=== PATIENT | female | born 1990 | race Caucasian/White ===

== ENCOUNTER 2016-12-03 16:58 | Emergency (ER) | payer SELFPAY ==
[~2016-12-03] VITALS: Wt 70.0 kg
[2016-12-03] MEDS ORDERED: ONDANSETRON 4 MG INJ IV STA ×2 (17:33→18:11)
[2016-12-03] MEDS ORDERED: morphine 2 MG INJ IV STA (17:33)
[2016-12-03] MEDS ORDERED: SOD CHLORIDE 0.9% 1,000 ML IV STA (17:33)
[2016-12-03 18:00] LABS: ADD SCAN DIFF NO
[2016-12-03 18:05] LABS: BASOPHILS % 0.1 % (0.0-2.0); EOSINOPHILS # 0.1 10^3/ul (0.0-0.5); EOSINOPHILS % 0.9 % (0.0-7.0); HEMOGLOBIN 15.8 g/dl (12.0-16.0); LYMPHOCYTES # 0.9 10^3/ul (0.8-2.9); LYMPHOCYTES % 6.4 % (15.0-51.0); MEAN CORPUSCULAR HEMOGLOBIN 30.4 pg (29.0-33.0); MEAN CORPUSCULAR HGB CONC 34.3 g/dl (32.0-37.0); MEAN CORPUSCULAR VOLUME 88.6 fl (82.0-101.0); MEAN PLATELET VOLUME 9.3 fl (7.4-10.4); MONOCYTE # 0.6 10^3/ul (0.3-0.9); MONOCYTES % 4.5 % (0.0-11.0); NEUTROPHILS % 87.7 % (39.0-77.0); PLATELET COUNT 285 10^3/UL (140-415); RED BLOOD COUNT 5.19 10^6/ul (4.20-5.40); RED CELL DISTRIBUTION WIDTH 12.7 % (11.5-14.5); WHITE BLOOD COUNT 13.6 10^3/ul (4.8-10.8)
[2016-12-03] MEDS ORDERED: NICOTINE (21 MG/24 HR) PATCH TRANSDERM STA (18:11)
[2016-12-03] MEDS ORDERED: morphine 4 MG/ML VIAL IV STA (18:11)
[2016-12-03 18:20] LABS: ALBUMIN 4.7 g/dl (3.3-4.9); POTASSIUM 3.7 mmol/L (3.5-5.1)
[2016-12-03 18:22] LABS: BILIRUBIN,INDIRECT 0.5 mg/dl (0-1.1); BILIRUBIN,TOTAL 0.5 mg/dl (0.2-1.3); CREATININE 0.61 mg/dl (0.44-1.00)
[2016-12-03 18:23] LABS: ALBUMIN/GLOBULIN RATIO 1.46; CALCIUM 9.1 mg/dl (8.4-10.2); TOTAL PROTEIN 7.9 g/dl (6.1-8.1)
[2016-12-03] MEDS ORDERED: METOCLOPRAMIDE 10 MG INJ IV ONE (18:30)
[2016-12-03 19:57] LABS: ADD UMIC YES; URINE BILIRUBIN (Dip) NEGATIVE (NEGATIVE); URINE BLOOD (Dip) NEGATIVE (NEGATIVE); URINE COLOR YELLOW (YELLOW); URINE GLUCOSE (Dip) NEGATIVE (NEGATIVE); URINE KETONES (Dip) NEGATIVE (NEGATIVE); URINE LEUKOCYTE ESTERASE (Dip) TRACE (NEGATIVE); URINE NITRITE (Dip) NEGATIVE (NEGATIVE); URINE TOTAL PROTEIN (Dip) 1+ (NEGATIVE); URINE UROBILINOGEN (Dip) 1.0 E.U./dL (0.1-1.0)
--- NOTE | 2016-12-03 19:59 | RADRPT ---
PROCEDURE: US Abdomen Limited. CLINICAL INDICATION: Pain TECHNIQUE: Multiple real-time longitudinal and transverse images were acquired of the patient's [facility] abdomen and retroperitoneum utilizing a curved array transducer. COMPARISON: None FINDINGS: Pancreas: The pancreas is suboptimally visualized in the tail. There is no significant abnormality in the visualized portion. The main pancreatic duct is not dilated. Liver: The liver shows normal shape, parenchymal echogenicity and echotexture. The right hepatic lo be measures 15.2 cm craniocaudal, which is within normal limits. There is no definite focal lesion v isualized in the liver. Bile ducts: The intrahepatic bile ducts are not dilated. Common bile duct measures 2 mm in diamete r, within normal limits. Gallbladder: A few gallstones are visualized within the gallbladder measuring up to 1.5 cm with pos terior shadowing. There is no gallbladder wall thickening or pericholecystic fluid. Kidneys: The right kidney measures 10.6 cm in length. The parenchymal echogenicity and thickness ap pear within normal range. No focal lesions are visualized. No hydronephrosis. There is no ascites visualized in the right abdomen. RPTAT: ZZ IMPRESSION: Cholelithiasis. No sonographic evidence for cholecystitis. .Elaina Meraz MD, Date Time Electronically viewed and signed by .Elaina Meraz MD, MD on 12/03/2016 19:58 .T/
[2016-12-03] MEDS ORDERED: HYDR-906 PO (20:20)
[2016-12-03] MEDS ORDERED: ONDA4TAB14 PO (20:20)
[2016-12-03] MEDS ORDERED: NAPR-688 PO (20:20)
--- NOTE | 2016-12-03 20:33 | ERD ---
ER Documentation Chief Complaint Date/Time DATE: 12/03/16 TIME: 20:25 Chief Complaint HPI 26-year-old female with increasing sharp upper abdominal pain with nausea and vomiting. She has a history of gallstones in fact scheduled for surgery next week to have her gallbladder removed. 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 She has had no fevers or chills. She did just quit smoking. ROS All systems reviewed and are negative except as per history of present illness. Medications Home Meds Active Scripts Ondansetron (Ondansetron Odt) 4 Mg Tab.rapdis, 4 MG PO Q6H Y for NAUSEA AND/OR VOMITING, #20 TAB Prov:MAO HOWELL DO 12/03/16 Naproxen* (Naproxen*) 500 Mg Tablet, 500 MG PO BID Y for PAIN, #20 TAB Prov:MAO HOWELL DO 12/03/16 Hydrocodone/Acetaminophen (Freedom 5-325 Tablet) 1 Each Tablet, 1 EACH PO Q6, #20 TAB Prov:MAO HOWELL DO 12/03/16 PMhx/Soc Medical and Surgical Hx: pt denies Medical Hx, pt denies Surgical Hx Hx Alcohol Use: No Hx Substance Use: No Hx Tobacco Use: Yes Smoking Status: Former smoker Physical Exam Vitals Vital Signs Date Time Temp Pulse Resp B/P Pulse Ox O2 Delivery O2 Flow Rate FiO2 12/03/16 17:28 98.4 108 18 147/89 99 Physical Exam Const: [] Head: Atraumatic Eyes: Normal Conjunctiva ENT: Normal External Ears, Nose and Mouth. Neck: Full range of motion..~ No meningismus. Resp: Clear to auscultation bilaterally Cardio: Regular rate and rhythm, no murmurs Abd: Soft, non tender, non distended. Normal bowel sounds Skin: No petechiae or rashes Back: No midline or flank tenderness Ext: No cyanosis, or edema Neur: Awake and alert Psych: Normal Mood and Affect Result Diagram: 12/03/16 1750 12/03/16 1750 Results 24 hrs Laboratory Tests Test 12/03/16 12:10 12/03/16 17:50 Urine Color YELLOW Urine Clarity CLEAR Urine pH 8.0 Urine Specific [place] 1.010 Urine Ketones NEGATIVE Urine Nitrite NEGATIVE Urine Bilirubin NEGATIVE Urine Urobilinogen 1.0 E.U./dL Urine Leukocyte Esterase TRACE Urine Microscopic RBC Pending Urine Microscopic WBC Pending Urine Hemoglobin NEGATIVE Urine Glucose NEGATIVE% Urine Total Protein 1+ White Blood Count 13.610^3/ul Red Blood Count 5.1910^6/ul Hemoglobin 15.8g/dl Hematocrit 46.0% Mean Corpuscular Volume 88.6fl Mean Corpuscular Hemoglobin 30.4pg Mean Corpuscular Hemoglobin Concent 34.3g/dl Red Cell Distribution Width 12.7% Platelet Count 16951^3/UL Mean Platelet Volume 9.3fl Neutrophils % 87.7% Lymphocytes % 6.4% Monocytes % 4.5% Eosinophils % 0.9% Basophils % 0.1% Nucleated Red Blood Cells % 0.0/100WBC Neutrophils # 12.010^3/ul Lymphocytes # 0.910^3/ul Monocytes # 0.610^3/ul Eosinophils # 0.110^3/ul Basophils # 0.010^3/ul Nucleated Red Blood Cells # 0.010^3/ul Sodium Level 143mmol/L Potassium Level 3.7mmol/L Chloride Level 106mmol/L Carbon Dioxide Level 30mmol/L Anion Gap 11 Blood Urea Nitrogen 14mg/dl Creatinine 0.61mg/dl Glucose Level 91mg/dl Calcium Level 9.1mg/dl Total Bilirubin 0.5mg/dl Direct Bilirubin 0.00mg/dl Indirect Bilirubin 0.5mg/dl Aspartate Amino Transf (AST/SGOT) 21IU/L Alanine Aminotransferase (ALT/SGPT) 24IU/L Alkaline Phosphatase 56IU/L Total Protein 7.9g/dl Albumin 4.7g/dl Globulin 3.20g/dl Albumin/Globulin Ratio 1.46 Lipase 102U/L Current Medications Medications (Trade) Dose Ordered Sig/Monica Route PRN Reason Start Time Stop Time Status Last Admin Dose Admin Sodium Chloride (NS) 1,000 ml @ 1,000 mls/hr Q1H STAT IV 12/03/16 17:33 12/03/16 18:32 DC 12/03/16 17:58 Morphine Sulfate (morphine) 2 mg ONCE STAT IV 12/03/16 17:33 12/03/16 17:34 DC 12/03/16 17:58 Ondansetron HCl (Zofran Inj) 4 mg ONCE STAT IV 12/03/16 17:33 12/03/16 17:34 DC 12/03/16 17:58 Nicotine (Nicoderm 21 Mg/ 24hr) 1 patch ONCE STAT TRANSDERM 12/03/16 18:11 12/03/16 18:13 DC Morphine Sulfate (morphine) 4 mg ONCE STAT IV 12/03/16 18:11 12/03/16 18:13 DC 12/03/16 18:23 Ondansetron HCl (Zofran Inj) 4 mg ONCE STAT IV 12/03/16 18:11 12/03/16 18:13 DC 12/03/16 18:22 Metoclopramide HCl (Reglan) 10 mg ONCE ONCE IV 12/03/16 18:30 12/03/16 18:31 DC 12/03/16 18:23 Procedures/MDM Biliary colic. Patient does have mild leukocytosis without any structural evidence of cholecystitis currently. Also no elevated liver enzymes are elevated bilirubin. Fortunately she is scheduled to have her gallbladder removed in the near future. Pain was controlled emergency room with morphine and nausea was controlled with 2 doses of Zofran and Reglan. She was given a liter of normal saline for hydration. Is also given a nicotine patch. She has trace leukocyte esterase in her urine as well as elevated white count and abdominal pain with vomiting going to treat her for a UTI with Keflex for 3 days as well. It is possible that nicotine withdrawals are contributing to her nausea. She is currently feeling well and going to discharge her with Freedom, naproxen, Zofran. Return precautions also given for any fevers or increasing pain. Right upper quadrant ultrasound interpretation: Gallstones without evidence of biliary obstruction. Departure Diagnosis: Primary Impression: Biliary colic Additional Impressions: Acute abdominal pain UTI (urinary tract infection) Condition: Stable Patient Instructions: Biliary Colic With Gallstone (Confirmed) Additional Instructions: Call your primary care doctor TOMORROW for an appointment during the next 2-3 days.See the doctor sooner or return here if your condition worsens before your appointment time. MAO HOWELL DO December 03, 2016 20:33
[2016-12-03] MEDS ORDERED: CEPH-443 PO (20:34)
[2016-12-03 20:49] VITALS: BP 136/92; PULSE 70; RESP 16; TEMP 98
[2016-12-03 20:56] LABS: SQUAMOUS EPITHELIAL CELL,UR FEW; URINE RBCS 0-2 /HPF (0)
[2016-12-03 20:57] LABS: BACTERIA,URINE FEW
== END 2016-12-03 20:51 | disposition home or self-care (01) ==
LOC: E/R 16:58
DX: K80.50 Calculus of bile duct without cholangitis or cholecystitis without obstruction (principal); N39.0 Urinary tract infection, site not specified; R11.2 Nausea with vomiting, unspecified; Z87.891 Personal history of nicotine dependence
CPT/HCPCS: 36415; 76705; 80053; 81001; 83690; 85025; 96374; 96375; 99285; J2270; J2405; J2765; J7030

== ENCOUNTER 2017-06-19 11:22 | Emergency (ER) | payer BC, OTHER ==
[~2017-06-19] VITALS: Ht 154.9 cm; Wt 69.1 kg
[~2017-06-19 11:22] MED LIST: CEPH-443 PO; HYDR-906 PO; NAPR-688 PO; ONDA4TAB14 PO
[2017-06-19 11:31] VITALS: Ht 154.9 cm; Wt 69.1 kg
[2017-06-19] MEDS ORDERED: SOD CHLORIDE 0.9% 1,000 ML IV STA (11:42)
[2017-06-19] MEDS ORDERED: morphine 4 MG/ML VIAL IV STA (11:42)
[2017-06-19] MEDS ORDERED: ONDANSETRON 4 MG INJ IV STA (11:42)
[2017-06-19 12:33] LABS: BASOPHILS % 0.4 % (0.0-2.0); EOSINOPHILS # 0.1 10^3/ul (0.0-0.5); EOSINOPHILS % 0.8 % (0.0-7.0); HEMATOCRIT 37.9 % (37.0-47.0); HEMOGLOBIN 13.6 g/dl (12.0-16.0); LYMPHOCYTES # 1.6 10^3/ul (0.8-2.9); LYMPHOCYTES % 13.9 % (15.0-51.0); MEAN CORPUSCULAR HEMOGLOBIN 30.4 pg (29.0-33.0); MEAN CORPUSCULAR HGB CONC 35.9 g/dl (32.0-37.0); MEAN CORPUSCULAR VOLUME 84.8 fl (82.0-101.0); MEAN PLATELET VOLUME 9.3 fl (7.4-10.4); MONOCYTE # 0.8 10^3/ul (0.3-0.9); MONOCYTES % 6.8 % (0.0-11.0); NEUTROPHIL # 8.8 10^3/ul (1.6-7.5); NEUTROPHILS % 77.4 % (39.0-77.0); PLATELET COUNT 261 10^3/UL (140-415); RED BLOOD COUNT 4.47 10^6/ul (4.20-5.40); RED CELL DISTRIBUTION WIDTH 13.3 % (11.5-14.5); WHITE BLOOD COUNT 11.3 10^3/ul (4.8-10.8)
[2017-06-19 12:54] LABS: ALBUMIN/GLOBULIN RATIO 1.21; BILIRUBIN,INDIRECT 0.2 mg/dl (0-1.1); BILIRUBIN,TOTAL 0.2 mg/dl (0.2-1.3); CALCIUM 9.7 mg/dl (8.4-10.2); CREATININE 0.54 mg/dl (0.44-1.00); POTASSIUM 3.7 mmol/L (3.5-5.1); TOTAL PROTEIN 7.3 g/dl (6.1-8.1)
[2017-06-19] MEDS ORDERED: ACET325T33 PO (13:32)
--- NOTE | 2017-06-19 13:34 | ERD ---
ER Documentation Chief Complaint Chief Complaint kumar, dizziness, nausea 12 wks ; left eye pressure HPI Patient is a 27-year-old female with gestational diabetes who presents with a headache. She said that she started with a headache at 6 AM and tried ibuprofen at 8 AM. The headache has been gradual in onset and is gotten worse. She has left-sided eye pain as well and felt dizzy and pressure. She is 12 weeks . Upon review of old medical records the patient one previous visit to the ER in November 2016. ROS All systems reviewed and are negative except as per history of present illness. Medications Home Meds Active Scripts Acetaminophen* (Tylenol*) 325 Mg Tablet, 2 TAB PO Q8 Y for PAIN AND OR ELEVATED TEMP, #20 TAB Prov:ALAN NEUMANN MD 06/19/17 Cephalexin* (Keflex*) 500 Mg Capsule, 500 MG PO TID for 3 Days, CAP Prov:MAO HOWELL DO 12/03/16 Ondansetron (Ondansetron Odt) 4 Mg Tab.rapdis, 4 MG PO Q6H Y for NAUSEA AND/OR VOMITING, #20 TAB Prov:MAO HOWELL DO 12/03/16 Naproxen* (Naproxen*) 500 Mg Tablet, 500 MG PO BID Y for PAIN, #20 TAB Prov:MAO HOWELL DO 12/03/16 Hydrocodone/Acetaminophen ([place] 5-325 Tablet) 1 Each Tablet, 1 EACH PO Q6, #20 TAB Prov:MAO HOWELL DO 12/03/16 Allergies Allergies: Coded Allergies: No Known Allergy (Unverified , 06/19/17) PMhx/Soc History of Surgery: Yes (lap myla) Anesthesia Reaction: No Hx Neurological Disorder: No Hx Respiratory Disorders: No Hx Cardiac Disorders: No Hx Psychiatric Problems: No Hx Miscellaneous Medical Probl: Yes (gestational diabetes) Hx Alcohol Use: No Hx Substance Use: No Hx Tobacco Use: Yes Smoking Status: Former smoker FmHx Family History: diabetes Physical Exam Vitals Vital Signs Date Time Temp Pulse Resp B/P Pulse Ox O2 Delivery O2 Flow Rate FiO2 06/19/17 11:31 98.4 104 18 149/91 100 Physical Exam Const: Mild distress secondary to headache Head: Atraumatic Eyes: Normal Conjunctiva ENT: Normal External Ears, Nose and Mouth. Neck: Full range of motion..~ No meningismus. Resp: Clear to auscultation bilaterally Cardio: Regular rate and rhythm, no murmurs Abd: Soft, abdomen without pain Skin: No petechiae or rashes Back: No midline or flank tenderness Ext: No cyanosis, or edema Neur: Awake and alert, cranial nerves II through XII intact, strength is 5 out of 5 in all 4 extremities, no pronator drift, no slurred speech Psych: Normal Mood and Affect Result Diagram: 06/19/17 1210 06/19/17 1210 Results 24 hrs Laboratory Tests Test 06/19/17 12:10 White Blood Count 11.310^3/ul Red Blood Count 4.4710^6/ul Hemoglobin 13.6g/dl Hematocrit 37.9% Mean Corpuscular Volume 84.8fl Mean Corpuscular Hemoglobin 30.4pg Mean Corpuscular Hemoglobin Concent 35.9g/dl Red Cell Distribution Width 13.3% Platelet Count 46357^3/UL Mean Platelet Volume 9.3fl Neutrophils % 77.4% Lymphocytes % 13.9% Monocytes % 6.8% Eosinophils % 0.8% Basophils % 0.4% Nucleated Red Blood Cells % 0.0/100WBC Neutrophils # 8.810^3/ul Lymphocytes # 1.610^3/ul Monocytes # 0.810^3/ul Eosinophils # 0.110^3/ul Basophils # 0.010^3/ul Nucleated Red Blood Cells # 0.010^3/ul Sodium Level 138mmol/L Potassium Level 3.7mmol/L Chloride Level 103mmol/L Carbon Dioxide Level 25mmol/L Anion Gap 14 Blood Urea Nitrogen 9mg/dl Creatinine 0.54mg/dl Glucose Level 87mg/dl Calcium Level 9.7mg/dl Total Bilirubin 0.2mg/dl Direct Bilirubin 0.00mg/dl Indirect Bilirubin 0.2mg/dl Aspartate Amino Transf (AST/SGOT) 22IU/L Alanine Aminotransferase (ALT/SGPT) 41IU/L Alkaline Phosphatase 55IU/L Total Protein 7.3g/dl Albumin 4.0g/dl Globulin 3.30g/dl Albumin/Globulin Ratio 1.21 Current Medications Medications (Trade) Dose Ordered Sig/Monica Route PRN Reason Start Time Stop Time Status Last Admin Dose Admin Sodium Chloride (NS) 1,000 ml @ 1,000 mls/hr Q1H STAT IV 06/19/17 11:42 06/19/17 12:41 DC 06/19/17 12:05 Morphine Sulfate (morphine) 4 mg ONCE STAT IV 06/19/17 11:42 06/19/17 11:44 DC 06/19/17 12:05 Ondansetron HCl (Zofran Inj) 4 mg ONCE STAT IV 06/19/17 11:42 06/19/17 11:44 DC 06/19/17 12:05 Procedures/MDM Patient is a 27-year-old female presents with headache. I see no signs of stroke at this time and her neurologic exam is normal. I believe her symptoms are consistent with a tension type or migraine headache. Laboratory studies were basically normal. She had a mildly elevated blood pressure in the first trimester . I doubt preeclampsia or eclampsia at this time but the patient will need to follow this closely with her doctor. She can return for any worsening symptoms. She was given morphine and Zofran. We discussed the possibility of a CT scan but at this point I feel the risks outweigh the benefits. She can follow-up with her primary doctor within 24-48 hours. She can return sooner for any worsening symptoms. Departure Diagnosis: Primary Impression: Hypertension affecting in first trimester Additional Impression: Headache Headache type: unspecified Headache chronicity pattern: acute headache Intractability: not intractable Qualified Code: R51 - Acute nonintractable headache, unspecified headache type Condition: Fair Patient Instructions: Self-Care for Headaches, High Blood Pressure ( Hypertension) Referrals: Your doctor Additional Instructions: Call your primary care doctor TOMORROW for an appointment during the next 1-2 days.See the doctor sooner or return here if your condition worsens before your appointment time. ALAN NEUMANN MD Jun 19, 2017 13:34
[2017-06-19 14:11] VITALS: BP 133/85; PULSE 78; RESP 16; TEMP 98.6
== END 2017-06-19 14:13 | disposition home or self-care (01) ==
LOC: E/R 11:22
DX: I10 Essential (primary) hypertension (principal); R40.2252 Coma scale, best verbal response, oriented, at arrival to emergency department; R51 Headache; R40.2142 Coma scale, eyes open, spontaneous, at arrival to emergency department; R40.2362 Coma scale, best motor response, obeys commands, at arrival to emergency department; Z87.891 Personal history of nicotine dependence; Z3A.12 12 weeks gestation of pregnancy
CPT/HCPCS: 36415; 80053; 85025; 96374; 96375; 99284; J2270; J2405; J7030

== ENCOUNTER 2017-07-18 10:07 | Emergency (ER) | END 2017-07-18 14:06 | disposition home or self-care (01) ==